=== PATIENT | male | born 1975 | race Native Hawaiian/Other Pacific Islander ===

== ENCOUNTER 2017-07-19 06:52 | Emergency (ER) | payer OTHER ==
[~2017-07-19] VITALS: Ht 182.9 cm; Wt 136.1 kg
[~2017-07-19 06:52] MED LIST: ARIP10TA15 PO; ASPI-991 PO; ATOR10TA PO; BUPR150T12 PO; CARV25TA PO; DILT240C88 PO; ESCI20TA PO; FURO-144 PO; LISI-603 PO; LURA40TA PO; LURA80TA PO; POTA-10 PO; TRAZ-144 PO
--- NOTE | 2017-07-19 07:10 | NUR ---
PT BIB SELF, PT C/O FLU LIKE SYMPTOMS X 3 DAYS, NAD NOTED, MD YASMIN AT BS.
--- NOTE | 2017-07-19 07:15 | NUR ---
WAITING FOR CHEST XRAY
[2017-07-19 07:31] LABS: BASOPHILS % (AUTO) 0.2 % (0.0-2.0); EOSINOPHILS # (AUTO) 0.3 /CMM (0.0-0.7); EOSINOPHILS % (AUTO) 2.5 % (0.0-6.0); HEMATOCRIT 41 % (39-51); LYMPHOCYTES # (AUTO) 0.6 /CMM (0.8-4.8); LYMPHOCYTES % (AUTO) 5.6 % (20.0-44.0); MEAN CORPUSCULAR HEMOGLOBIN 32 PG (26.0-33.0); MEAN CORPUSCULAR HGB CONC 34 g/dl (31.0-36.0); MEAN CORPUSCULAR VOLUME 94 fL (80-96); MONOCYTES # (AUTO) 1.6 /CMM (0.1-1.30); MONOCYTES % (AUTO) 15.7 % (2.0-12.0); NEUTROPHILS # (AUTO) 7.7 /CMM (1.8-8.9); PLATELET COUNT (AUTO) 205 /CMM (150-450); RDW COEFFICIENT OF VARIATION 12.3 (11.5-15.0); WHITE BLOOD COUNT (AUTO) 10.1 K/uL (4.3-11.0)
[2017-07-19 07:42] LABS: CALCIUM, SERUM 9.3 mg/dL (8.5-10.1); CREATININE 1.4 mg/dL (0.6-1.3); POTASSIUM 3.7 mmol/L (3.5-5.1)
--- NOTE | 2017-07-19 07:51 | NUR ---
XRAY AT BS
[2017-07-19 08:10] LABS: BAND % (MANUAL) 3 % (0.0-5.0); LYMPHOCYTES % (MANUAL) 4 % (16-48); MONOCYTES % (MANUAL) 13 % (0-11.0); NEUTROPHILS % (MANUAL) 80 (42-76)
--- NOTE | 2017-07-19 09:09 | NUR ---
Patient discharged to home in stable condition. Written and verbal after care instructions given. Patient verbalizes understanding of instruction. Presciription given
[2017-07-19 09:10] VITALS: BP 102/60
== END 2017-07-19 09:12 | disposition home or self-care (01) ==
LOC: ER 06:57
DX: J06.9 Acute upper respiratory infection, unspecified (principal); I10 Essential (primary) hypertension; Z91.013 Allergy to seafood; F17.200 Nicotine dependence, unspecified, uncomplicated; Z79.82 Long term (current) use of aspirin
CPT/HCPCS: 36415; 71010; 80048; 83605; 85025; 99285; 99406; A4606; Z7610